=== PATIENT | female | born 1985 | race Caucasian/White ===

== ENCOUNTER 2017-03-24 05:24 | Inpatient (IN) | payer OTHER ==
[~2017-03-24 05:24] MED LIST: Citric Acid/Sodium Citrate Solution 30 ML Cup PO SCH; Lactated Ringers 1,000 ML IV SCH; Metoclopramide 10 MG/2 ML SDV IVPUSH SCH; Oxytocin/Lactated Ringers 10 UNIT/1,000 ML BAG IV SCH; Sodium Chloride 0.9% 10 ML Syringe FLUSH PRN; ceFAZolin 2 GM in Premix Bag 1 BAG IV SCH
[2017-03-24] MEDS ORDERED: Morphine PF 1 MG/ML Amp ONE (06:54)
[2017-03-24] MEDS ORDERED: Bupivacaine 0.5% 30 ML SDV ONE (07:00)
[2017-03-24] MEDS ORDERED: Oxytocin 10 Units/1 ML SDV ONE (07:06)
[2017-03-24] MEDS ORDERED: Ondansetron 4 MG/2 ML SDV ONE (07:06)
[2017-03-24] MEDS ORDERED: Ketorolac 30 MG/ML SDV ONE (07:06)
[2017-03-24] MEDS ORDERED: Lactated Ringers 2,000 ML ONE (07:06)
[2017-03-24] MEDS ORDERED: ceFAZolin 1 GM Vial ONE (07:06)
--- NOTE | 2017-03-24 07:40 | PCM.PREANE ---
Preanesthetic Assessment - Anesthesia/Transfusion/Family Hx Anesthesia History: Prior Anesthesia Without Reaction Family History of Anesthesia Reaction: No Transfusion History: No Prior Transfusion(s) - Review of Systems General: No Symptoms Pulmonary: No Symptoms Cardiovascular: No Symptoms Gastrointestinal: Other (Heart burn with pregnacny, tums work well. No symptoms this morning. ) Neurological: No Symptoms Other: Reports: None - Physical Assessment NPO Status Date: 03/23/17 NPO Status Time: 23:00 O2 Sat by Pulse Oximetry: 97 Respiratory Rate: 16 Vital Signs: Last Vital Signs Temp 37.0 C 03/24/17 06:01 Pulse 67 03/24/17 06:01 Resp 16 03/24/17 06:01 BP 115/76 03/24/17 06:01 Pulse Ox 97 03/24/17 06:01 Height: 1.75 m Weight: 88.904 kg ASA Class: 2 Mental Status: Alert & Oriented x3 Airway Class: Mallampati = 2 Dentition: Reports: Normal Dentition Thyro-Mental Finger Breadths: 3 Mouth Opening Finger Breadths: 3 ROM/Head Extension: Full Lungs: Clear to Auscultation, Normal Respiratory Effort Cardiovascular: Regular Rate, Regular Rhythm - Lab Values: Laboratory Last Values WBC 13.73 K/mm3 (3.98-10.04) H 03/24/17 05:37 RBC 4.11 M/mm3 (3.98-5.22) 03/24/17 05:37 Hgb 13.9 gm/L (11.2-15.7) 03/24/17 05:37 Hct 39.7 % (34.1-44.9) 03/24/17 05:37 MCV 96.6 fl (79.4-94.8) H 03/24/17 05:37 MCH 33.8 pg (25.6-32.2) H 03/24/17 05:37 MCHC 35.0 g/dl (32.2-35.5) 03/24/17 05:37 RDW Std Deviation 44.4 fL (36.4-46.3) 03/24/17 05:37 Plt Count 212 K/mm3 (182-369) 03/24/17 05:37 MPV 11.1 fl (9.4-12.3) 03/24/17 05:37 Neut % (Auto) 74.4 % (34.0-71.1) H 03/24/17 05:37 Lymph % (Auto) 14.2 % (19.3-51.7) L 03/24/17 05:37 [place] % (Auto) 9.5 % (4.7-12.5) 03/24/17 05:37 Eos % (Auto) 1.7 (0.7-5.8) 03/24/17 05:37 Baso % (Auto) 0.2 % (0.1-1.2) 03/24/17 05:37 Neut # (Auto) 10.21 K/mm3 (1.56-6.13) H 03/24/17 05:37 Lymph # (Auto) 1.95 K/mm3 (1.18-3.74) 03/24/17 05:37 [place] # (Auto) 1.30 K/mm3 (0.24-0.36) H 03/24/17 05:37 Eos # (Auto) 0.24 K/mm3 (0.04-0.36) 03/24/17 05:37 Baso # (Auto) 0.03 K/mm3 (0.01-0.08) 03/24/17 05:37 Manual Slide Review Normal smear 03/24/17 05:37 Blood Type A NEGATIVE 03/24/17 05:37 Gel Antibody Screen Negative 03/24/17 05:37 - Allergies Allergies/Adverse Reactions: Allergies Allergy/AdvReac Type Severity Reaction Status Date / Time No Known Allergies Allergy Verified 03/24/17 01:19 - Acknowledgements Anesthesia Type Planned: Spinal Pt an Appropriate Candidate for the Planned Anesthesia: Yes Alternatives and Risks of Anesthesia Discussed w Pt/Guardian: Yes Pt/Guardian Understands and Agrees with Anesthesia Plan: Yes PreAnesthesia Questionnaire - Past Health History Medical/Surgical History: Denies Medical/Surgical History [employer] History: Reports: , Spontaneous - Past Surgical History HEENT Surgical History: Reports: Oral Surgery Female Surgical History: Reports: Breast Reconstruction, D&C - SUBSTANCE USE Smoking Status *Q: Never Smoker Tobacco Use Within Last Twelve Months: No Second Hand Smoke Exposure: No Days Per Week of Alcohol Use: 0 Recreational Drug Use History: No - HOME MEDS Home Medications: Home Meds Prenatalvitamins. 1 tab PO DAILY 06/17/14 [History] Venlafaxine [Effexor] 37.5 mg PO DAILY 03/24/17 [History] - CURRENT (IN HOUSE) MEDS Current Meds: Current Medications Citric Acid/Sodium Citrate (Bicitra Solution) 30 ml PO .ONETIME [facility] Last Admin: 03/24/17 07:32 Dose: 30 ml Cefazolin Sodium/Dextrose 2 gm (/ Premix) 50 mls @ 100 mls/hr IV .ONETIME [facility] Lactated Ringer's (Ringers, Lactated) 1,000 mls @ 125 mls/hr IV ASDIRECTED FERNY Last Admin: 03/24/17 07:32 Dose: 125 mls/hr Oxytocin/Lactated Ringer's (Pitocin In Lr 10 Units/1,000 Ml) 10 unit in 1,000 mls @ 100 mls/hr IV ASDIRECTED FERNY Metoclopramide HCl (Reglan) 10 mg IVPUSH .ONETIME [facility] Stop: 03/24/17 08:00 Last Admin: 03/24/17 07:32 Dose: 10 mg Sodium Chloride (Saline Flush) 10 ml FLUSH ASDIRECTED PRN PRN Reason: Keep Vein Open Discontinued Medications Bupivacaine HCl (Marcaine 0.5%) Confirm Administered Dose 30 ml .ROUTE .STK-MED ONE Stop: 03/24/17 07:01 Cefazolin Sodium (Ancef) Confirm Administered Dose 2 gm .ROUTE .STK-MED ONE Stop: 03/24/17 07:07 Lactated Ringer's (Ringers, Lactated) Confirm Administered Dose 2,000 mls @ as directed .ROUTE .STK-MED ONE Stop: 03/24/17 07:07 Ketorolac Tromethamine (Toradol) Confirm Administered Dose 30 mg .ROUTE .STK- MED ONE Stop: 03/24/17 07:07 Morphine Sulfate (Duramorph Pf) Confirm Administered Dose 1 mg .ROUTE .STK-MED ONE Stop: 03/24/17 06:55 Ondansetron HCl (Zofran) Confirm Administered Dose 4 mg .ROUTE .STK-MED ONE Stop: 03/24/17 07:07 Oxytocin (Pitocin) Confirm Administered Dose 10 unit .ROUTE .STK-MED ONE Stop: 03/24/17 07:07
[2017-03-24] MEDS ORDERED: Phenylephrine/Normal Saline 100 MCG/ML 10 ML Syringe ONE (08:31)
[2017-03-24] MEDS ORDERED: ePHEDrine 50 MG/ML SDV IVPUSH PRN ×2 (08:31→10:10)
[2017-03-24] MEDS ORDERED: diphenhydrAMINE 50 MG/ML SDV IVPUSH PRN ×2 (08:31→10:10)
[2017-03-24] MEDS ORDERED: fentaNYL 100 MCG/2 ML SDV IVPUSH PRN (08:31)
--- NOTE | 2017-03-24 08:53 | PCM.POSTAN ---
POST ANESTHESIA ASSESSMENT - MENTAL STATUS Mental Status: Alert, Oriented - VITAL SIGNS Pulse Rate: 80 SaO2: 100 Resp Rate: 15 Blood Pressure: 107/65 Temperature: 36.8 C - RESPIRATORY Respiratory Status: Respiratory Rate WNL, Airway Patent, O2 Saturation Stable - CARDIOVASCULAR CV Status: Pulse Rate WNL, Blood Pressure Stable - GASTROINTESTINAL GI Status: No Symptoms - PAIN Pain Score: 0 - POST OP HYDRATION Hydration Status: Adequate & Stable
--- NOTE | 2017-03-24 09:04 | PCM.OPNOTE ---
- General Post-Op/Procedure Note Date of Surgery/Procedure: 03/24/17 Operative Procedure(s): primary low transverse for breech Findings: Viable female, 8/9 APGARS, breech Pre Op Diagnosis: breech Post-Op Diagnosis: Same Anesthesia Technique: Spinal Primary Surgeon: Malika Tinajero Secondary Surgeon: Miguel Pino Anesthesia Provider: Vero Gtz Reason Production Sanitizer Was Necessary: retraction, patient safety Fluid Replacement, Intraop: 2,000 Output, Urine Amount: 225 EBL in mLs: 1,000 Complications: None Condition: Good Free Text/Narrative:: The patient was taken to the operating room where epidural anesthesia was dosed to surgical levels without difficulty. The patient was prepped and draped in the usual sterile fashion in the dorsal supine position with a leftward tilt. A Pfannenstiel skin incision was made with the scalpel and carried through to the underlying layer of fascia. The fascia was incised in the midline and extended laterally using Garrett scissors. Leandro clamps were used to elevate the superior aspect of the fascial incision, which was elevated, and the underlying rectus muscles were dissected off bluntly and using Garrett scissors. Attention was then turned to the inferior aspect of the fascial incision, which in similar fashion was grasped with Leandro clamps, elevated, and the underlying rectus muscles were dissected off bluntly and using the garrett. The rectus muscles were dissected in the midline. The peritoneum was entered bluntly; this incision was extended superiorly and inferiorly with good visualization of the bladder. The bladder blade was inserted. The vesicouterine peritoneum was identified and entered sharply using Metzenbaum scissors. This incision was extended laterally and the bladder flap was created digitally. The bladder blade was reinserted. The lower uterine segment was incised in a transverse fashion using the scalpel and with digital traction. Meconium stained fluid was noted. The infant was delivered after grasping a foot with normal breech maneuvers. The cord was clamped and cut. The infant was subsequently handed to the awaiting automotive parts person whose presence had been requested.. The placenta was delivered spontaneously intact with a three-vessel cord noted. The uterus was exteriorized and cleared of all clots and debris. The uterine incision was repaired in 2 layers using 0 monocryl. Hemostasis was visualized. Hemostasis was visualized bilaterally. The uterus was returned to the abdomen. The uterine incision was reexamined and it was noted to be hemostatic. The pelvis was copiously irrigated. The fascia was closed with 1 PDS suture, and the skin was closed with 3-0 monocryl. Sponge, lap, and instrument counts were correct x2. The patient was stable at the completion of the procedure and was subsequently transferred to the recovery room in stable condition.
[2017-03-24] MEDS ORDERED: Docusate Sodium 100 MG Cap PO PRN (10:10)
[2017-03-24] MEDS ORDERED: Dextrose 5%-Lactated Ringers 1,000 ML IV SCH (10:10)
[2017-03-24] MEDS ORDERED: Lanolin 100% Cream 7 GM Tube TOP PRN (10:10)
[2017-03-24] MEDS ORDERED: Naloxone 0.4 MG/ML SDV IVPUSH PRN (10:10)
[2017-03-24] MEDS: Ketorolac 30 MG/ML SDV IVPUSH SCH ×2 (13:34→19:35)
[2017-03-25] MEDS: Ketorolac 30 MG/ML SDV IVPUSH SCH (00:48)
[2017-03-25] MEDS: Ibuprofen 600 MG Tab PO PRN ×2 (08:54→18:29)
--- NOTE | 2017-03-25 09:12 | PCM.SN ---
- Free Text/Narrative Note: Post Operative Progress Note POD # 1 Subjective: Doing well overall. Ambulating without difficulty. Lochia minimal. [place] removed and voided once this morning. Passing flatus. Tolerating regular diet without nausea or vomiting. Pain controlled with oral medications. Breast feeding with minimal difficulty. Objective: Vitals: Vital Signs - 24 hr 03/24/17 03/24/17 03/24/17 09:15 09:30 09:43 Temperature Temperature [ 36.1 C 36.3 C Temporal] Pulse, Peripheral Pulse, 73 68 69 Peripheral [ Pulse Oximetry] Respiratory 17 24 H 14 Rate Blood Pressure Blood Pressure 104/67 101/65 109/68 [Upper Arm] O2 Sat by Pulse 100 98 99 Oximetry 03/24/17 03/24/17 03/24/17 09:55 10:00 10:10 Temperature Temperature [ 36.2 C Temporal] Pulse, Peripheral Pulse, 75 Peripheral [ Pulse Oximetry] Respiratory 14 Rate Blood Pressure 112/48 L 99/81 Blood Pressure [Upper Arm] O2 Sat by Pulse 97 Oximetry 03/24/17 03/24/17 03/24/17 10:16 10:32 10:43 Temperature Temperature [ Temporal] Pulse, 83 79 72 Peripheral Pulse, Peripheral [ Pulse Oximetry] Respiratory Rate Blood Pressure 114/66 89/65 L 114/72 Blood Pressure [Upper Arm] O2 Sat by Pulse 97 98 99 Oximetry 03/24/17 03/24/17 03/24/17 11:00 11:01 12:00 Temperature Temperature [ 36.5 C Temporal] Pulse, 73 Peripheral Pulse, 70 Peripheral [ Pulse Oximetry] Respiratory 15 14 Rate Blood Pressure 114/66 Blood Pressure [Upper Arm] O2 Sat by Pulse 100 99 99 Oximetry 03/24/17 03/24/17 03/24/17 13:00 13:40 14:00 Temperature Temperature [ Temporal] Pulse, 89 Peripheral Pulse, Peripheral [ Pulse Oximetry] Respiratory 14 15 Rate Blood Pressure 117/75 Blood Pressure [Upper Arm] O2 Sat by Pulse 100 98 100 Oximetry 03/24/17 03/24/17 03/24/17 15:00 20:46 20:47 Temperature 37.1 C Temperature [ Temporal] Pulse, 78 84 Peripheral Pulse, Peripheral [ Pulse Oximetry] Respiratory 15 14 Rate Blood Pressure 114/63 Blood Pressure [Upper Arm] O2 Sat by Pulse 99 99 99 Oximetry 03/24/17 03/24/17 03/25/17 23:38 23:39 00:00 Temperature 37.2 C Temperature [ Temporal] Pulse, 77 75 Peripheral Pulse, Peripheral [ Pulse Oximetry] Respiratory 14 14 Rate Blood Pressure 100/61 Blood Pressure [Upper Arm] O2 Sat by Pulse 98 97 99 Oximetry 03/25/17 03/25/17 03/25/17 01:00 02:00 03:00 Temperature Temperature [ Temporal] Pulse, Peripheral Pulse, Peripheral [ Pulse Oximetry] Respiratory 13 15 14 Rate Blood Pressure Blood Pressure [Upper Arm] O2 Sat by Pulse 100 100 100 Oximetry 03/25/17 03/25/17 03/25/17 04:00 05:00 06:00 Temperature Temperature [ 36.9 C Temporal] Pulse, Peripheral Pulse, 87 Peripheral [ Pulse Oximetry] Respiratory 14 13 15 Rate Blood Pressure Blood Pressure 106/57 L [Upper Arm] O2 Sat by Pulse 98 99 99 Oximetry 03/25/17 03/25/17 08:00 08:38 Temperature Temperature [ 36.9 C Temporal] Pulse, 88 Peripheral Pulse, Peripheral [ Pulse Oximetry] Respiratory 18 Rate Blood Pressure 120/65 Blood Pressure [Upper Arm] O2 Sat by Pulse 100 Oximetry Physical Exam General: Alert and oriented, no acute distress Lungs: Clear to auscultation bilaterally Heart: Regular rate and rhythm Abdomen: Soft, minimal appropriate tenderness, non-distended, fundus midline, nontender and below the umbilicus Incision: Clean, dry and intact, no erythema, bleeding or drainage Extremities: No edema Labs: Laboratory Tests 03/24/17 03/24/17 03/24/17 Range/Units 05:37 05:37 16:40 WBC 13.73 H (3.98-10.04) K/mm3 RBC 4.11 (3.98-5.22) M/mm3 Hgb 13.9 (11.2-15.7) gm/L Hct 39.7 (34.1-44.9) % MCV 96.6 H (79.4-94.8) fl MCH 33.8 H (25.6-32.2) pg MCHC 35.0 (32.2-35.5) g/dl RDW Std Deviation 44.4 (36.4-46.3) fL Plt Count 212 (182-369) K/mm3 MPV 11.1 (9.4-12.3) fl Neut % (Auto) 74.4 H (34.0-71.1) % Lymph % (Auto) 14.2 L (19.3-51.7) % [place] % (Auto) 9.5 (4.7-12.5) % Eos % (Auto) 1.7 (0.7-5.8) Baso % (Auto) 0.2 (0.1-1.2) % Neut # (Auto) 10.21 H (1.56-6.13) K/mm3 Lymph # (Auto) 1.95 (1.18-3.74) K/mm3 [place] # (Auto) 1.30 H (0.24-0.36) K/mm3 Eos # (Auto) 0.24 (0.04-0.36) K/mm3 Baso # (Auto) 0.03 (0.01-0.08) K/mm3 Manual Slide Review Normal smear Blood Type A NEGATIVE A NEGATIVE Gel Antibody Screen Negative Positive Screen 1 ros/5 flds - neg RhIG Candidate? Yes Rhogam Indicated Yes, baby rh pos H 03/25/17 Range/Units 06:40 WBC 15.91 H (3.98-10.04) K/mm3 RBC 2.90 L (3.98-5.22) M/mm3 Hgb 9.9 L (11.2-15.7) gm/L Hct 28.8 L (34.1-44.9) % MCV 99.3 H (79.4-94.8) fl MCH 34.1 H (25.6-32.2) pg MCHC 34.4 (32.2-35.5) g/dl RDW Std Deviation 43.4 (36.4-46.3) fL Plt Count 167 L (182-369) K/mm3 MPV 11.2 (9.4-12.3) fl Neut % (Auto) 77.1 H (34.0-71.1) % Lymph % (Auto) 12.6 L (19.3-51.7) % [place] % (Auto) 8.9 (4.7-12.5) % Eos % (Auto) 1.0 (0.7-5.8) Baso % (Auto) 0.1 (0.1-1.2) % Neut # (Auto) 12.26 H (1.56-6.13) K/mm3 Lymph # (Auto) 2.01 (1.18-3.74) K/mm3 [place] # (Auto) 1.41 H (0.24-0.36) K/mm3 Eos # (Auto) 0.16 (0.04-0.36) K/mm3 Baso # (Auto) 0.02 (0.01-0.08) K/mm3 Manual Slide Review Blood Type Gel Antibody Screen Screen RhIG Candidate? Rhogam Indicated ASSESSMENT: 31-year-old female G 3 P 1021 s/p primary section POD #1 for breech presentation, complicated by Rh- status in PLAN: Doing well Breast feeding with minimal difficulty. Assist as needed Incision healing well. Continue to keep clean and dry. Lochia minimal. Continue to monitor for appropriate lochia. Continue routine post-operative care Patient with A- blood type and with a positive blood type. Patient received RhoGAM this morning, 03/25/2017. Anticipate discharge home tomorrow Miguel Pino MD 9:10 AM 03/25/2017
[2017-03-25] MEDS: Acetaminophen/oxyCODONE 325-5 MG Tab PO PRN ×2 (14:28→21:13)
[2017-03-26] MEDS: Ibuprofen 600 MG Tab PO PRN (04:03)
--- NOTE | 2017-03-26 08:58 | PCM.SN ---
- Free Text/Narrative Note: Post Operative Progress Note POD # 2 Subjective: Doing well overall. Ambulating without difficulty. Lochia minimal. Voiding without difficulty. Passing flatus. Had moderate amount of gas pains yesterday in the evening but resolved this morning. Tolerating regular diet without nausea or vomiting. Pain controlled with oral medications. Breast feeding with minimal difficulty but using supplementation for feeding initiation. Objective: Vitals: Vital Signs - 24 hr 03/25/17 03/25/17 03/25/17 12:00 12:15 20:59 Temperature [ 36.9 C Temporal] Pulse, 83 73 Peripheral Respiratory 18 Rate Blood Pressure 108/70 118/71 O2 Sat by Pulse 99 98 Oximetry 03/25/17 03/26/17 03/26/17 21:00 04:29 04:30 Temperature [ 37.2 C 37.1 C Temporal] Pulse, 79 Peripheral Respiratory 16 16 Rate Blood Pressure 112/74 O2 Sat by Pulse 99 Oximetry Physical Exam General: Alert and oriented, no acute distress Lungs: Clear to auscultation bilaterally Heart: Regular rate and rhythm Abdomen: Soft, minimal appropriate tenderness, non-distended, fundus midline, nontender and below the umbilicus Incision: Clean, dry and intact, no erythema, bleeding or drainage Extremities: No edema Labs: Laboratory Tests 03/24/17 03/24/17 03/24/17 Range/Units 05:37 05:37 16:40 WBC 13.73 H (3.98-10.04) K/mm3 RBC 4.11 (3.98-5.22) M/mm3 Hgb 13.9 (11.2-15.7) gm/L Hct 39.7 (34.1-44.9) % MCV 96.6 H (79.4-94.8) fl MCH 33.8 H (25.6-32.2) pg MCHC 35.0 (32.2-35.5) g/dl RDW Std Deviation 44.4 (36.4-46.3) fL Plt Count 212 (182-369) K/mm3 MPV 11.1 (9.4-12.3) fl Neut % (Auto) 74.4 H (34.0-71.1) % Lymph % (Auto) 14.2 L (19.3-51.7) % [place] % (Auto) 9.5 (4.7-12.5) % Eos % (Auto) 1.7 (0.7-5.8) Baso % (Auto) 0.2 (0.1-1.2) % Neut # (Auto) 10.21 H (1.56-6.13) K/mm3 Lymph # (Auto) 1.95 (1.18-3.74) K/mm3 [place] # (Auto) 1.30 H (0.24-0.36) K/mm3 Eos # (Auto) 0.24 (0.04-0.36) K/mm3 Baso # (Auto) 0.03 (0.01-0.08) K/mm3 Manual Slide Review Normal smear Blood Type A NEGATIVE A NEGATIVE Gel Antibody Screen Negative Positive Screen 1 ros/5 flds - neg RhIG Candidate? Yes Rhogam Indicated Yes, baby rh pos H 03/25/17 Range/Units 06:40 WBC 15.91 H (3.98-10.04) K/mm3 RBC 2.90 L (3.98-5.22) M/mm3 Hgb 9.9 L (11.2-15.7) gm/L Hct 28.8 L (34.1-44.9) % MCV 99.3 H (79.4-94.8) fl MCH 34.1 H (25.6-32.2) pg MCHC 34.4 (32.2-35.5) g/dl RDW Std Deviation 43.4 (36.4-46.3) fL Plt Count 167 L (182-369) K/mm3 MPV 11.2 (9.4-12.3) fl Neut % (Auto) 77.1 H (34.0-71.1) % Lymph % (Auto) 12.6 L (19.3-51.7) % [place] % (Auto) 8.9 (4.7-12.5) % Eos % (Auto) 1.0 (0.7-5.8) Baso % (Auto) 0.1 (0.1-1.2) % Neut # (Auto) 12.26 H (1.56-6.13) K/mm3 Lymph # (Auto) 2.01 (1.18-3.74) K/mm3 [place] # (Auto) 1.41 H (0.24-0.36) K/mm3 Eos # (Auto) 0.16 (0.04-0.36) K/mm3 Baso # (Auto) 0.02 (0.01-0.08) K/mm3 Manual Slide Review Blood Type Gel Antibody Screen Screen RhIG Candidate? Rhogam Indicated ASSESSMENT: 31-year-old female G 3 P 1021 s/p primary section POD #2 for breech presentation, complicated by Rh- status in PLAN: Doing well Breast feeding with minimal difficulty but using supplementation for feeding initiation. Assist as needed Incision healing well. Continue to keep clean and dry. Lochia minimal. Continue to monitor for appropriate lochia. Continue routine post-operative care Patient with A- blood type and with A positive blood type. Patient received RhoGAM in morning of 03/25/2017. Discharge home today Miguel Pino MD 8:55 AM 03/26/2017
--- NOTE | 2017-03-26 09:07 | PCM.DCSUM1 ---
Discharge Summary - Hospital Course Free Text/Narrative:: The patient was taken to the operating room where epidural anesthesia was dosed to surgical levels without difficulty. The patient was prepped and draped in the usual sterile fashion in the dorsal supine position with a leftward tilt. A Pfannenstiel skin incision was made with the scalpel and carried through to the underlying layer of fascia. The fascia was incised in the midline and extended laterally using Garrett scissors. Leandro clamps were used to elevate the superior aspect of the fascial incision, which was elevated, and the underlying rectus muscles were dissected off bluntly and using Garrett scissors. Attention was then turned to the inferior aspect of the fascial incision, which in similar fashion was grasped with Leandro clamps, elevated, and the underlying rectus muscles were dissected off bluntly and using the garrett. The rectus muscles were dissected in the midline. The peritoneum was entered bluntly; this incision was extended superiorly and inferiorly with good visualization of the bladder. The bladder blade was inserted. The vesicouterine peritoneum was identified and entered sharply using Metzenbaum scissors. This incision was extended laterally and the bladder flap was created digitally. The bladder blade was reinserted. The lower uterine segment was incised in a transverse fashion using the scalpel and with digital traction. Meconium stained fluid was noted. The infant was delivered after grasping a foot with normal breech maneuvers. The cord was clamped and cut. The infant was subsequently handed to the awaiting note keeper whose presence had been requested.. The placenta was delivered spontaneously intact with a three-vessel cord noted. The uterus was exteriorized and cleared of all clots and debris. The uterine incision was repaired in 2 layers using 0 monocryl. Hemostasis was visualized. Hemostasis was visualized bilaterally. The uterus was returned to the abdomen. The uterine incision was reexamined and it was noted to be hemostatic. The pelvis was copiously irrigated. The fascia was closed with 1 PDS suture, and the skin was closed with 3-0 monocryl. Sponge, lap, and instrument counts were correct x2. The patient was stable at the completion of the procedure and was subsequently transferred to the recovery room in stable condition. HPI Initial Comments: The patient was taken to the operating room where epidural anesthesia was dosed to surgical levels without difficulty. The patient was prepped and draped in the usual sterile fashion in the dorsal supine position with a leftward tilt. A Pfannenstiel skin incision was made with the scalpel and carried through to the underlying layer of fascia. The fascia was incised in the midline and extended laterally using Garrett scissors. Leandro clamps were used to elevate the superior aspect of the fascial incision, which was elevated, and the underlying rectus muscles were dissected off bluntly and using Garrett scissors. Attention was then turned to the inferior aspect of the fascial incision, which in similar fashion was grasped with Leandro clamps, elevated, and the underlying rectus muscles were dissected off bluntly and using the garrett. The rectus muscles were dissected in the midline. The peritoneum was entered bluntly; this incision was extended superiorly and inferiorly with good visualization of the bladder. The bladder blade was inserted. The vesicouterine peritoneum was identified and entered sharply using Metzenbaum scissors. This incision was extended laterally and the bladder flap was created digitally. The bladder blade was reinserted. The lower uterine segment was incised in a transverse fashion using the scalpel and with digital traction. Meconium stained fluid was noted. The was delivered after grasping a foot with normal breech maneuvers. The cord was clamped and cut. The was subsequently handed to the awaiting note keeper whose presence had been requested.. The placenta was delivered spontaneously intact with a three-vessel cord noted. The uterus was exteriorized and cleared of all clots and debris. The uterine incision was repaired in 2 layers using 0 monocryl. Hemostasis was visualized. Hemostasis was visualized bilaterally. The uterus was returned to the abdomen. The uterine incision was reexamined and it was noted to be hemostatic. The pelvis was copiously irrigated. The fascia was closed with 1 PDS suture, and the skin was closed with 3-0 monocryl. Sponge, lap, and instrument counts were correct x2. The patient was stable at the completion of the procedure and was subsequently transferred to the recovery room in stable condition. Brief History: The patient was taken to the operating room where epidural anesthesia was dosed to surgical levels without difficulty. The patient was prepped and draped in the usual sterile fashion in the dorsal supine position with a leftward tilt. A Pfannenstiel skin incision was made with the scalpel and carried through to the underlying layer of fascia. The fascia was incised in the midline and extended laterally using Garrett scissors. Leandro clamps were used to elevate the superior aspect of the fascial incision, which was elevated , and the underlying rectus muscles were dissected off bluntly and using Garrett scissors. Attention was then turned to the inferior aspect of the fascial incision, which in similar fashion was grasped with Leandro clamps, elevated, and the underlying rectus muscles were dissected off bluntly and using the garrett. The rectus muscles were dissected in the midline. The peritoneum was entered bluntly; this incision was extended superiorly and inferiorly with good visualization of the bladder. The bladder blade was inserted. The vesicouterine peritoneum was identified and entered sharply using Metzenbaum scissors. This incision was extended laterally and the bladder flap was created digitally. The bladder blade was reinserted. The lower uterine segment was incised in a transverse fashion using the scalpel and with digital traction. Meconium stained fluid was noted. The infant was delivered after grasping a foot with normal breech maneuvers. The cord was clamped and cut. The was subsequently handed to the awaiting note keeper whose presence had been requested.. The placenta was delivered spontaneously intact with a three-vessel cord noted. The uterus was exteriorized and cleared of all clots and debris. The uterine incision was repaired in 2 layers using 0 monocryl. Hemostasis was visualized. Hemostasis was visualized bilaterally. The uterus was returned to the abdomen. The uterine incision was reexamined and it was noted to be hemostatic. The pelvis was copiously irrigated. The fascia was closed with 1 PDS suture, and the skin was closed with 3-0 monocryl. Sponge, lap, and instrument counts were correct x2. The patient was stable at the completion of the procedure and was subsequently transferred to the recovery room in stable condition. - Discharge Data Discharge Date: 03/26/17 Discharge Disposition: Home, Self-Care 01 Condition: Good - Discharge Diagnosis/Problem(s) (1) 40 weeks gestation of SNOMED Code(s): 77721858 ICD Code: Z3A.40 - 40 WEEKS GESTATION OF Status: Acute Current Visit: Yes (2) Delivered by section SNOMED Code(s): 465723376 ICD Code: O82 - ENCOUNTER FOR DELIVERY WITHOUT INDICATION Status: Acute Current Visit: Yes (3) Breech extraction, delivered SNOMED Code(s): 539753126 ICD Code: O64.1XX0 - OBSTRUCTED LABOR DUE TO BREECH PRESENTATION, UNSP Status: Acute Current Visit: Yes (4) Rh negative status during SNOMED Code(s): 456543349 ICD Code: O09.899 - SUPERVISION OF OTHER HIGH RISK PREGNANCIES, UNSP TRIMESTER Status: Acute Current Visit: Yes - Patient Summary/Data Operative Procedure(s) Performed: primary low transverse for breech Complications: None Consults: None Hospital Course: The patient was admitted for planned section secondary to breech presentation. Patient was taken to the operating room and had a primary low transverse section of a live female for breech presentation on at 0812. Apgars of 8 and 9. weight of 9 lbs. 12 oz. Her preoperative hematocrit was 39.7. She was doing well during her postoperative state. The morning of postoperative day #1 she had her [place] catheter removed and she was able to void without difficulty. She was ambulating without difficulty, tolerating regular diet without any nausea or vomiting, pain was controlled by oral medications and she was passing flatus. Maternal blood type was A- and baby's blood type was A+ and she was given RhoGAM in the morning of postoperative day #1. In the morning of postoperative day #1 her hematocrit was 28.8. She was breast-feeding without difficulty. She continued to do well in the postoperative day #2 meeting all the above milestones. She desired to be discharged home the morning of postoperative day #2 and was discharged. She will follow up with Dr. Tinajero in 2 weeks or earlier as needed. Postoperative warning signs and symptoms were discussed with patient prior to discharge. - Patient Instructions Diet: Regular Diet as Tolerated Activity: As Tolerated, No Lifting Over 25 Pounds Activity, Other: Nothing in the vagina for 6 weeks. Driving: Do Not Drive (While on narcotic medications or if feeling unsafe to drive.) Showering/Bathing: May Shower, No Tub Bathing/Swimming (For 1 week) Wound/Incision Care: Keep Operative Site/Wound Site Clean and Dry Notify Provider of: Fever, Increased Pain, Swelling and Redness, Drainage, Nausea and/or Vomiting - Discharge Plan Prescriptions/Med Rec: Acetaminophen/oxyCODONE [Percocet 325-5 MG] 1 - 2 tab PO Q6H PRN #30 tablet PRN Reason: Pain (Moderate 4-6) Home Medications: Home Meds Prenatalvitamins. 1 tab PO DAILY 06/17/14 [History] Venlafaxine [Effexor] 37.5 mg PO DAILY 03/24/17 [History] Acetaminophen/oxyCODONE [Percocet 325-5 MG] 1 - 2 tab PO Q6H PRN #30 tablet [Rx] Docusate Sodium [Colace] 100 mg PO Q12H PRN cap 03/26/17 [Rx] Ibuprofen [IJD: Ibuprofen] 600 mg PO Q6H PRN tablet 03/26/17 [Rx] Lanolin [Lansinoh HPA] 1 applic TOP ASDIRECTED PRN tube 03/26/17 [Rx] Patient Handouts: Delivery, Care After, Home Care Instructions for Mom , Care After Delivery Referrals: Malika Tinajero MD [Physician] - (Follow-up in 2 weeks for routine postop check.) - Discharge Summary/Plan Comment DC Time >30 min.: No - Patient Data Vitals - Most Recent: Last Vital Signs Temp 37.1 C 03/26/17 04:30 Pulse 79 03/26/17 04:29 Resp 16 03/26/17 04:30 BP 112/74 03/26/17 04:29 Pulse Ox 99 03/26/17 04:29 Weight - Most Recent: 88.904 kg I&O - Last 24 hours: Intake & Output 03/25/17 03/26/17 03/26/17 22:59 06:59 14:59 Intake Total 240 Balance 240 Lab Results - Last 24 hrs: Laboratory Results - last 24 hr 03/25/17 Range/Units 06:40 Blood Type Cancelled Gel Antibody Screen Cancelled Screen Cancelled RhIG Candidate? Cancelled Rhogam Indicated Cancelled Med Orders - Current: Current Medications Diphenhydramine HCl (Benadryl) 25 mg IVPUSH Q6H PRN PRN Reason: Itching or Nausea Docusate Sodium (Colace) 100 mg PO Q12H PRN PRN Reason: Constipation Last Admin: 03/25/17 21:12 Dose: 100 mg Emollient Ointment (Lansinoh Hpa) 0 gm TOP ASDIRECTED PRN PRN Reason: Sore Nipples Last Admin: 03/25/17 21:12 Dose: 1 tube Ephedrine Sulfate (Ephedrine Sulfate) 5 mg IVPUSH SEECOMMENT PRN PRN Reason: Other Ibuprofen (Motrin) 600 mg PO Q6H PRN PRN Reason: mild pain or fever Last Admin: 03/26/17 04:03 Dose: 600 mg Naloxone HCl (Narcan) 0.1 mg IVPUSH SEECOMMENT PRN PRN Reason: Respiratory Depression Oxycodone/Acetaminophen (Percocet 325-5 Mg) 2 tab PO Q6H PRN PRN Reason: Pain (moderate 4-6) Last Admin: 03/25/17 21:13 Dose: 2 tab Discontinued Medications Bupivacaine HCl (Marcaine 0.5%) Confirm Administered Dose 30 ml .ROUTE .STK-MED ONE Stop: 03/24/17 07:01 Cefazolin Sodium (Ancef) Confirm Administered Dose 2 gm .ROUTE .STK-MED ONE Stop: 03/24/17 07:07 Citric Acid/Sodium Citrate (Bicitra Solution) [address] [facility] Last Admin: 03/24/17 07:32 Dose: 30 ml Diphenhydramine HCl (Benadryl) 25 mg IVPUSH Q6H PRN PRN Reason: Pruritis Ephedrine Sulfate (Ephedrine Sulfate) 5 mg IVPUSH ASDIRECTED PRN PRN Reason: Hypotension Fentanyl (Sublimaze) 50 mcg IVPUSH Q5M PRN PRN Reason: Pain Cefazolin Sodium/Dextrose 2 gm (/ Premix) 50 mls @ 100 mls/hr IV .ONETIME [facility] Lactated Ringer's (Ringers, Lactated) 1,000 mls @ 125 mls/hr IV ASDIRECTED [facility] Last Admin: 03/24/17 07:32 Dose: 125 mls/hr Oxytocin/Lactated Ringer's (Pitocin In Lr 10 Units/1,000 Ml) 10 unit in 1,000 mls @ 100 mls/hr IV ASDIRECTED [facility] Lactated Ringer's (Ringers, Lactated) Confirm Administered Dose 2,000 mls @ as directed .ROUTE .STK-MED ONE Stop: 03/24/17 07:07 Dextrose/Lactated Ringer's (Dextrose 5%-Lactated Ringers) 1,000 mls @ 125 mls/ hr IV ASDIRECTED [facility] Stop: 03/24/17 18:09 Last Admin: 03/24/17 10:39 Dose: 125 mls/hr Ketorolac Tromethamine (Toradol) Confirm Administered Dose 30 mg .ROUTE .STK- MED ONE Stop: 03/24/17 07:07 Ketorolac Tromethamine (Toradol) [address] [facility] Stop: 03/25/17 01:01 Last Admin: 03/25/17 00:48 Dose: 30 mg Metoclopramide HCl (Reglan) 10 mg IVPUSH .ONETIME [facility] Stop: 03/24/17 08:00 Last Admin: 03/24/17 07:32 Dose: 10 mg Morphine Sulfate (Duramorph Pf) Confirm Administered Dose 1 mg .ROUTE .STK-MED ONE Stop: 03/24/17 06:55 Ondansetron HCl (Zofran) Confirm Administered Dose 4 mg .ROUTE .STK-MED ONE Stop: 03/24/17 07:07 Oxytocin (Pitocin) Confirm Administered Dose 10 unit .ROUTE .STK-MED ONE Stop: 03/24/17 07:07 Phenylephrine HCl (Phenylephrine In Ns 100 Mcg/Ml) Confirm Administered Dose 1 mg .ROUTE .STK-MED ONE Stop: 03/24/17 08:32 Sodium Chloride (Saline Flush) 10 ml FLUSH ASDIRECTED PRN PRN Reason: Keep Vein Open *Q Meaningful Use (DIS) - VTE *Q VTE Criteria *Q: - Stroke *Q Stroke Criteria *Q: - AMI *Q AMI Criteria *Q:
[2017-03-26 11:23] VITALS: BP 113/72
--- NOTE | 2017-03-26 20:45 | PCM48HPAN ---
Post Anesthesia Note - EVALUATION WITHIN 48HRS OF ANESTHETIC Vital Signs in Normal Range: Yes Patient Participated in Evaluation: Yes Respiratory Function Stable: Yes Airway Patent: Yes Cardiovascular Function Stable: Yes Hydration Status Stable: Yes Pain Control Satisfactory: Yes Nausea and Vomiting Control Satisfactory: Yes Mental Status Recovered: Yes
== END 2017-03-26 11:25 | disposition home or self-care (01) | DRG 766 ==
LOC: JD.OB 05:24 → UNDOADMIN 05:24 → EDSTATUS 08:00 → UNDODISIN 03-26 11:25
PROVIDERS: ADMIT Obstetrics & Gynecology; ATTEND Obstetrics & Gynecology
PROC: 10D00Z1 Extraction of Products of Conception, Low, Open Approach (ICD-10-PCS; principal; 2017-03-24)
DX: O64.1XX0 Obstructed labor due to breech presentation, not applicable or unspecified (principal); O48.0 Post-term pregnancy; O77.0 Labor and delivery complicated by meconium in amniotic fluid; Z3A.41 41 weeks gestation of pregnancy; Z37.0 Single live birth
CPT/HCPCS: 01961; 36415; 85025; 85461; 86850; 86900; 86901; 94762; A9270-GY; J0690; J1885; J2274; J2405; J2590; J2765; J2790; J7042; J7120